=== PATIENT | female | born 1975 | race Asian ===

== ENCOUNTER 2022-07-05 17:10 | Emergency (ER) | payer OTHER ==
[2022-07-05 17:41] VITALS: BP 138/81; PULSE 801; RESP 20; TEMP 98; BMI 26.6
== END 2022-07-05 18:13 | disposition home or self-care (01) ==
LOC: FER 17:10
DX: M79.661 Pain in right lower leg (principal)
CPT/HCPCS: 85379; 93971-TC; 99284-25